=== PATIENT | female | born 1960 | race Caucasian/White ===

== ENCOUNTER 2023-10-09 12:13 | Outpatient (OUT) | payer OTHER, SELFPAY ==
--- NOTE | 2023-10-09 | XR_ITS ---
The [address] [address] Patient Name: LACY JEFFRIES MRN: [id number] date: 1960 Sex: F Assigned Patient Location: [facility] Current Patient Location: [facility] Accession/Order Number: [id number] Exam Date: 10/09/2023 12:14 Report Date: 10/09/2023 15:56 At the request of: TIARA MORGAN Procedure: XR foot RT min 3V EXAM: XR ankle RT min 3V, XR foot RT min 3V HISTORY: RIGHT ANKLE PAIN COMPARISON: There is no appropriate prior study for comparison. The alignment is anatomical. Mild degenerative changes of the first metatarsophalangeal joint are noted. 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 A small calcaneal spur is noted. There is no acute fracture or dislocation. Otherwise, the interarticular joint spaces are preserved. Mild soft tissue swelling along the medial malleolus is noted. XR/XR foot RT min 3V IMPRESSION: Degenerative changes. Electronically authenticated by: LEONIE MORAN Date: 10/09/2023 15:56
--- NOTE | 2023-10-09 | XR_ITS ---
The [address] [address] Patient Name: LACY JEFFRIES MRN: [id number] date: 1960 Sex: F Assigned Patient Location: [facility] Current Patient Location: [facility] Accession/Order Number: [id number] Exam Date: 10/09/2023 12:14 Report Date: 10/09/2023 15:56 At the request of: TIARA MORGAN Procedure: XR ankle RT min 3V EXAM: XR ankle RT min 3V, XR foot RT min 3V HISTORY: RIGHT ANKLE PAIN COMPARISON: There is no appropriate prior study for comparison. The alignment is anatomical. Mild degenerative changes of the first metatarsophalangeal joint are noted. 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 A small calcaneal spur is noted. There is no acute fracture or dislocation. Otherwise, the interarticular joint spaces are preserved. Mild soft tissue swelling along the medial malleolus is noted. XR/XR ankle RT min 3V IMPRESSION: Degenerative changes. Electronically authenticated by: LEONIE MORAN Date: 10/09/2023 15:56
== END 2023-10-09 12:14 | disposition home or self-care (01) ==
PROVIDERS: Visit Provider Physician Assistant
DX: M79.671 Pain in right foot (principal); M25.571 Pain in right ankle and joints of right foot
CPT/HCPCS: 73610; 73630

== ENCOUNTER 2023-10-15 16:23 | Outpatient (RCR) | payer OTHER, SELFPAY | END 2023-11-13 13:14 | disposition home or self-care (01) | LOC: PT 16:23 | PROVIDERS: Visit Provider Physician Assistant | DX: Q74.2 Other congenital malformations of lower limb(s), including pelvic girdle (principal) | CPT/HCPCS: 97035; 97110; 97161 ==

== ENCOUNTER 2024-01-07 11:20 | Outpatient (OUT) | payer OTHER, SELFPAY ==
--- NOTE | 2024-01-07 | XR_ITS ---
The [place] [id number] Patient Name: LACY JEFFRIES MRN: [id number] date: 1960 Sex: F Assigned Patient Location: Current Patient Location: Accession/Order Number: [id number] Exam Date: 01/07/2024 11:22 Report Date: 01/07/2024 14:13 At the request of: MANJINDER SHIELDS Procedure: XR ankle RT min 3V PROCEDURE: XR ankle RT min 3V, XR foot RT min 3V COMPARISON: 10/09/2023 HISTORY: RIGHT ANKLE PAIN FINDINGS: BONES:No acute fracture or dislocation. Mild hallux valgus. Mild to moderate degenerative change first metatarsal-phalangeal joint. Minimal enthesopathic spurring plantar calcaneus SOFT TISSUES:Negative. No visible soft tissue swelling. EFFUSION:None visible. OTHER: Negative. XR/XR ankle RT min 3V IMPRESSION: Stable degenerative changes most significant at the first metatarsal-phalangeal joint Electronically authenticated by: CHIARA LANG Date: 01/07/2024 14:13
--- NOTE | 2024-01-07 | XR_ITS ---
The [place] [id number] Patient Name: LACY JEFFRIES MRN: [id number] date: 1960 Sex: F Assigned Patient Location: Current Patient Location: Accession/Order Number: [id number] Exam Date: 01/07/2024 11:22 Report Date: 01/07/2024 14:13 At the request of: MANJINDER SHIELDS Procedure: XR foot RT min 3V PROCEDURE: XR ankle RT min 3V, XR foot RT min 3V COMPARISON: 10/09/2023 HISTORY: RIGHT ANKLE PAIN FINDINGS: BONES:No acute fracture or dislocation. Mild hallux valgus. Mild to moderate degenerative change first metatarsal-phalangeal joint. Minimal enthesopathic spurring plantar calcaneus SOFT TISSUES:Negative. No visible soft tissue swelling. EFFUSION:None visible. OTHER: Negative. XR/XR foot RT min 3V IMPRESSION: Stable degenerative changes most significant at the first metatarsal-phalangeal joint Electronically authenticated by: CHIARA LANG Date: 01/07/2024 14:13
--- OUTSIDE RECORDS SUMMARY | 2024-01-07 11:30 | XMS_ITS | CCD ---
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 Name Role Phone MD Jase Gale Primary Care Provider MD Jase Gale Attending Provider Jase Gale Attending Unavailable Jase Gale Primary Care Unavailable Jase Gale Admitting Unavailable Jase Gale Unavailable Jase Gale MD Primary Care Provider JAKY FLORES Attending Unavailable JAKY FLORES Referring Unavailable Medications Current Medications Medication Drug Class(es) Dates Sig (Normalized) Sig (Original) Calcium (2 sources) Phosphate Binder, Calcium Calcium Active Multivitamin preparation (2 sources) Multivitamin Act natanael naproxen sodium 220 mg oral tablet (2 sources) Nonsteroidal Anti-inflammatory Drug naproxen sodium (Aleve) 220 MG tablet every 12 (twelve) hours 0 Active Problems Problem Classification Problem Date Documented Da te Episodic/Chronic Disorders of lipid metabolism (2 sources) Dyslipidemia; Translations: [Hyperlipidemia, unspecified] Chronic Essential hypertension (2 sources) Hypertensive disorder; Translations: [Essential (primary) hypertension] Chronic Other connective tissue disease (1 source) Pain in right foot Episodic Other screening for suspected conditions (not mental disorders or infectious disease) (7 sources) Patient encounter status; Translations: [Encounter for screening for malignant neoplasm of colon] 08-06-2023 Episodic Unclassified (1 source) Pain in right foot; Translations: [Pain in right foot] Onset: 09-16-2023 Results Test Name Value Interpretation Reference Range Facility BI MAMMOGRAM SCREENING TOMOS YNTHESIS BILATERALon 10-01-2023 BI MAMMOGRAM SCREENING TOMOSYNTHESIS BILATERAL This is a summary report. The complete report is available in the patient's medical record. If you cannot access the medical record, please contact the sending organization for a detailed fax or copy. BI MAMMOGRAM SCREENING TOMOSYNTHESIS BILATERAL:10/27/2023 5:31 PM CLINICAL HISTORY:screening. COMPARISONS: May 16, 2015; December 24, 2017. TECHNIQUE: Routine full field 3D breast tomosynthesis was performed bilaterally. CAD analysis was performed and used in the interpretation. FINDINGS: Scattered fibroglandular densities are noted with stable asymmetry. There are no developing masses, suspicious microcalcifications , or areas of architectural distortion identified on today's examination. There is no significant change when compared to the prior examinations identified, given differences in technique and positioning. IMPRESSION: BI-RADS 1- NEGATIVE. ROUTINE FOLLOW-UP MAMMOGRAPHY IS SUGGESTED IN ONE YEAR. DENSITY: Scattered fibroglandular densities. 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 Accredited by the ACR and FDA. MAMMOGRAPHY IS VERY IMPORTANT TO YOUR HEALTH. THE [employer] GUIDELINES RECOMMEND THAT WOMEN 40 YEARS OF AGE AND OLDER SHOULD HAVE A MAMMOGRAM EVERY YEAR. A REMINDER LETTER WILL BE SENT AT THE APPROPRIATE TIME. ELECTRONICALLY SIGNED BY: Brian Delarosa DO Normal Not Available Comment on above: Order Comment: Us or spot compression prn XR foot RT min 3V*on 024 XR foot RT min 3V* [facility] Main [place] [address] [place] [address] XRay Report Signed Patient: John Shah MR#: [id number] : 1960 Acct:[id number] Age/Sex: 62 / F ADM Date: 09/16/23 Loc: [facility] Room: Type: [facility] Attending Dr: Jase Gale MD Copies to: Jase Gale MD Ordering Provider: Jase Gale MD Date of Service: 09/16/23 XR/XR foot RT min 3V*: Right foot pain ([id number]) XR/XR ankle RT min 3V*: Right foot pain RIGHT ANKLE - 3 views, right foot 3 views CLINICAL HISTORY: Pain and swelling to right ankle for one month. COMPARISON: None FINDINGS: Right ankle: Soft tissue swelling. Ankle mortise appears intact without acute bony process. Right foot: No focal soft tissue abnormality. No acute bony process. Mild degenerative changes without bony erosions. Plantar spurring. XR/XR ankle RT min 3V* IMPRESSION: MILD DEGENERATIVE CHANGES OF THE RIGHT FOOT WITHOUT ACUTE BONY PROCESS. MILD SOFT TISSUE SWELLING INVOLVING THE ANKLE WITHOUT ACUTE BONY PROCESS. Impression dictated by: Merrick Brito Jr., D.O.09/16/2023 2:14 PM Dictation Location: [place] [address] Transcribed By: [facility] 09/16/23 1414 Dictated By: Merrick Brito Jr, DO 09/16/23 1412 Signed By: 09/16/23 1414 Normal [facility] XR foot RT min 3V* [facility] [employer] Other XR foot RT min 3V* [facility] [employer] Other XR foot RT min 3V* [address] [place] [address] [employer] Other XR foot RT min 3V* [place] [address] [employer] Other XR foot RT min 3V* XRay Report [employer] Other XR foot RT min 3V* Signed [employer] Other XR foot RT min 3V* Patient: John Shah MR#: [id number] [employer] Other XR foot RT min 3V* : 1960 Acct:[id number] [employer] Other XR foot RT min 3V* Age/Sex: 62 / F ADM Date: 09/16/23 [employer] Other XR foot RT min 3V* [facility]: Type[facility] [employer] Other XR foot RT min 3V* Attending Dr: Jase Gale MD [employer] Other XR foot RT min 3V* Copies to: Jase Gale MD [employer] Other XR foot RT min 3V* Ordering Provider: Jase Gale MD [employer] Other XR foot RT min 3V* Date of Service: 09/16/23 [employer] Other XR foot RT min 3V* XR/XR foot RT min 3V*: Right foot pain [employer] Other XR foot RT min 3V* ([id number]) XR/XR ankle RT min 3V*: Right foot pain [employer] Other XR foot RT min 3V* RIGHT ANKLE - 3 views, right foot 3 views [employer] Other XR foot RT min 3V* CLINICAL HISTORY: Pain and swelling to right ankle for one month. [employer] Other XR foot RT min 3V* COMPARISON: None [employer] Other XR foot RT min 3V* FINDINGS: [employer] Other XR foot RT min 3V* Right ankle: Soft tissue swelling. Ankle mortise appears intact without acute bony process. [employer] Other XR foot RT min 3V* Right foot: No focal soft tissue abnormality. No acute bony process. Mild degenerative changes [employer] Other XR foot RT min 3V* without bony erosions. Plantar spurring. [employer] Other XR foot RT min 3V* XR/XR ankle RT min 3V* [employer] Other XR foot RT min 3V* IMPRESSION: [employer] Other XR foot RT min 3V* MILD DEGENERATIVE CHANGES OF THE RIGHT FOOT WITHOUT ACUTE BONY PROCESS. [employer] Other XR foot RT min 3V* MILD SOFT TISSUE SWELLING INVOLVING THE ANKLE WITHOUT ACUTE BONY PROCESS. [employer] Other XR foot RT min 3V* Impression dictated by: Merrick Brito Jr., D.OJason09/16/2023 2:14 PM [employer] Other XR foot RT min 3V* Dictation Location: [facility]08 [employer] Other XR foot RT min 3V* Transcribed By: PWS 09/16/23 1414 [employer] Other XR foot RT min 3V* Dictated By: Merrick Brito Jr, DO 09/16/23 1412 [place] [employer] Other XR foot RT min 3V* Signed By: [employer] Other XR foot RT min 3V* 09/16/[address] [place] [address] [employer] Other Comprehensive Metabolic Pane sal 04-22-2022 Albumin [Mass/Vol] 4.4 g/dL Normal 3.5-4.6 [facility] Comment on above: Performed By: #### C MP #### [facility] [address] [place] [address] ALP [Catalytic activity/Vol] 116 U/L Normal 40-130 [facility] Comment on above: Performed By: #### C MP #### [facility] [address] [place] [address] ALT [Catalytic activity/Vol] 21 U/L Normal 0-33 [facility] Comment on above: Performed By: #### C MP #### [facility] [address] [place] [address] Anion gap [Moles/Vol] 10 mmol/L Normal 9-15 [facility] Comment on above: Performed By: #### C MP #### [facility] [address] [place] [address] AST [Catalytic activity/Vol] 27 U/L Normal 0-35 [facility] Comment on above: Performed By: #### C MP #### [facility] [address] [place] [address] Bilirubin [Mass/Vol] mg/dL Normal 0.2-0.7 [facility] Comment on above: Performed By: #### C MP #### [facility] [address] [place] [address] Calcium [Mass/Vol] 9.9 mg/dL Normal 8.5-9.9 [facility] Comment on above: Performed By: #### C MP #### [facility] [address] [place] [address] Chloride [Moles/Vol] 104 mmol/L Normal 95-107 [facility] Comment on above: Performed By: #### C MP #### [facility] [address] [place] [address] CO2 [Moles/Vol] 26 mmol/L Normal 20-31 [facility] Comment on above: Performed By: #### C MP #### [facility] [address] [place] [address] Creatinine [Mass/Vol] 0.51 mg/dL Normal 0.50-0.90 [facility] Comment on above: Performed By: #### C MP #### [facility] [address] [place] [address] GFR >60.0 Normal >60 [facility] Comment on above: Result Comment: >60 mL/min/1.73m2 EGFR, calc. for ages 18 and older using the MDRD formula (not corrected for weight), is valid for stable renal function. Performed By: #### C MP #### [facility] [address] [place] [address] GFR/1.73 sq M.predicted among blacks MDRD (S/P/Bld) [Vol rate/Area] mL/min/{1.73_m2} Normal >60 [facility] Comment on above: Result Comment: >60 mL/min/1.73m2 EGFR, calc. for ages 18 and older using the MDRD formula (not corrected for weight), is valid for stable renal function. Performed By: #### C MP #### [facility] [address] [place] [address] Globulin (S) [Mass/Vol] 2.6 g/dL Normal 2.3-3.5 [facility] Comment on above: Performed By: #### C MP #### [facility] [address] [place] [address] Glucose [Mass/Vol] 101 mg/dL Critically high 70-99 M [facility] Comment on above: Performed By: #### C MP #### [facility] [address] [place] [address] Potassium [Moles/Vol] 4.2 mmol/L Normal 3.4-4.9 [facility] Comment on above: Performed By: #### C MP #### [facility] [address] [place] [address] Protein [Mass/Vol] 7.0 g/dL Normal 6.3-8.0 [facility] Comment on above: Performed By: #### C MP #### [facility] [address] [place] [address] Sodium [Moles/Vol] 140 mmol/L Normal 135-144 [facility] Comment on above: Performed By: #### C MP #### [facility] [address] [place] [address] Urea nitrogen [Mass/Vol] 19 mg/dL Normal 8-23 [facility] Comment on above: Performed By: #### C MP #### [facility] [address] [place] [address] Lipid Panelon 04-22-2022 Cholesterol [Mass/Vol] 162 mg/dL Normal 0-199 [facility] Comment on above: Result Comment: ATP III Cholesterol classification is Desirable. Performed By: #### L IPID #### [facility] [address] [place] [address] Cholesterol in HDL [Mass/Vol] 85 mg/dL Critically high 40-59 [facility] Comment on above: Result Comment: ATP III HDL Cholesterol Classification is high. Expected Values: Males: >55 = No Risk 35-55 = Moderate Risk <35 = High Risk Females: >65 = No Risk 45-65 = Moderate Risk <45 = High Risk NCEP Guidelines: Third Report December 2000 >59 = negative risk factor for CHD <40 = major risk factor for CHD Performed By: #### L IPID #### [facility] [address] [place] [address] Cholesterol in LDL [Mass/Vol] 64 mg/dL Normal 0-129 [facility] Comment on above: Result Comment: ATP III LDL Classification is Optimal. Performed By: #### L IPID #### [facility] [address] [place] [address] Triglyceride [Mass/Vol] 66 mg/dL Normal 0-150 [facility] Comment on above: Result Comment: ATP III Triglycerides Classification is Normal. Performed By: #### L IPID #### [facility] [address] [place] [address] Vital Signs Date Time Vital Sign Value Performing Clinician Grace michael 10-01-2023 13:44-0500 Body mass index (BMI) [Ratio] 27.29 kg/m2 Jaky Nataprawira DO Work Phone: [facility] 10-01-2023 13:44-0500 Body weight 72.12 kg Jaky Nataprawira DO Work Phone: [facility] 10-01-2023 13:44-0500 Diastolic blood pressure 78 mm[Hg] Jaky Nataprawira DO Work Phone: [facility] 10-01-2023 13:44-0500 Systolic blood pressure 126 mm[Hg] Jaky Nataprawira DO Work Phone: [facility] 09-16-2023 11:15-0500 Body height 162.56 cm Jase Gale Other [employer] Other 09-16-2023 11:15-0500 Body mass index (BMI) [Ratio] 27.12 kg/m2 Jase Gale Other [employer] Other 09-16-2023 11:15-0500 Body weight 71.67 kg Jase Gale Other [employer] Other 09-16-2023 11:15-0500 Diastolic blood pressure 70 mm[Hg] Jase Gale Other [employer] Other 09-16-2023 11:15-0500 Systolic blood pressure 134 mm[Hg] Jase Gale Other [employer] Other Encounters Encounter Date Encounter Type Care Provider Facility Start: 10-27-2023 End: 10-28-2023 ambulatory JAKY FLORES Not Available Start: 10-01-2023 End: 10-01-2023 ambulatory JAKY FLORES Not Available Start: 10-01-2023 End: 10-01-2023 Initial preventive medicine new patient 40-64yrs Jaky Flores DO Work Phone: [facility] Comment on above: Encounter for gyneco logical examination without abnormal finding; Screening for malignant neoplasm of cervix; Encounter for screening for human papillomavirus (HPV); Encounter for screening mammogram for malignant neoplasm of breast Start: 10-01-2023 End: 10-01-2023 Patient encounter status Jaky Flores DO Work Phone: [facility] Start: 09-22-2023 End: 09-22-2023 ambulatory Jase Gale Other [employer] Other Start: 09-22-2023 Telephone encounter [facility] Start: 09-16-2023 End: 09-16-2023 ambulatory Jase Gale Facility:[facility] Start: 09-16-2023 Office outpatient vi sit 15 minutes [facility] Start: 09-16-2023 End: 09-16-2023 ambulatory MD Jase Gale Work Phone: [facility] Work Phone: Start: 09-16-2023 End: 09-16-2023 Patient encounter procedure MD Jase Gale Work Phone: [facility] Procedures Date Procedure Procedure Detail Performing Clinician Start: 09-16-2023 X-ray of right ankle MD Jase Gale Work Phone: Start: 09-16-2023 X-ray of right foot MD Jase Gale Work Phone: Start: 12-24-2017 Mammography Jaky leonard DO Work Phone: Plan of Treatment Date Care Activity Detail Author Start: 04-25-2023 Influenza vaccination Influenza Vacc ine (#1) [facility] Start: 12-24-2018 Screening for malignant neoplasm of breast Mammogram [facility] Start: 11-10-1989 Screening for malignant neoplasm of cervix [facility] Start: 11-10-1980 Screening for malignant neoplasm of cervix Pap Smear [facility] Start: 1960 Screening for malignant neoplasm of colon [facility] DBT Breast - bilater al screening Bilateral screening mammogram with tomosynthesis Imaging Routine Encounter for screening mammogram for malignant neoplasm of breast Ordered: 10/01/2023 [facility] Comment on above: Ordered: 10/01/2023 THINPREP TIS PAP AND HPV MRNA E6/E7 WITH REFLEX TO HPV 16,18/45 THINPREP TIS PAP AND HPV MRNA E6/E7 WITH REFLEX TO HPV 16,18/45 Pathology and Cytology Routine Screening for malignant neoplasm of cervix Encounter for screening for human papillomavirus (HPV) Ordered: 10/01/2023 [facility] Work Phone: Comment on above: Ordered: 10/01/2023 Immunizations Immunization Date Immunization Notes Care Provider Griffin escamilla 10-20-2020 COVID-19 Vaccine Moderna - Documentation Purposes Only Jase Gale Other [employer] Other 09-22-2020 COVID-19 Vaccine Moderna - Documentation Purposes Only Jase Gale Other [employer] Other Payers Date Payer Category Payer Self-pay [id number] 2023 Unknown [employer] [id number] 2023-Present [address] [place] [address] [id number] 2015 Unknown [id number] 1960 Unknown [id number] 1960 Unknown [id number] Unknown [id number] Social History Date Type Detail Facility Start: 07-16-2019 End: 10-01-2023 Tobacco smoking status NHIS Never smoked tobacco (finding) [facility] Start: 1960 Sex Assigned At Female F [facility] Start: 10-01-2023 Sex Assigned At N [facility] [employer] Other Start: 10-01-2023 Tobacco use and exposure Smokeless tobacco non-user [facility] Start: 10-01-2023 Alcohol intake Ex-drinker (finding) [facility] Start: 10-01-2023 History of Social function [facility] Start: 10-01-2023 Gender identity Identifies as female gender (finding) [facility] History of Present illness Narrative 10-01-2023 Jaky Flores DO - 10/01/2023 1:30 PM EST Note Date & Type Note Facility 10-01-2023 History of Presen t illness Narrative Images from the original note were not included. Jaky Flores DO Obstetrics and Gynecology Name: John Shah Date/Time of Service:10/01/2023 2:09 PM :1960 Age: 62 y.o. Subjective John Shah is a 62 y.o. female who is here for a routine exam. Gynecologic Exam (New patient here for a yearly-previous JFL. Denies any problems at this time. Mammogram order sent to [facility]. Last pap 2018-NILM colonoscopy was within the last ten years. ) Control Contraception: post menopausal status. LMP: No LMP recorded. Patient is postmenopausal. Last Mammogram Results for orders placed in visit on 11/19/17 Bilateral screening mammogram Narrative PERFORMED AT [facility] LOCATION:[id number] negative Current Outpatient Medications on File Prior to Visit Medication Sig Dispense Refill naproxen sodium (Aleve) 220 MG tablet every 12 (twelve) hours No current facility-administered medications on file prior to visit. Past Medical History: Diagnosis Date Hx of abnormal cervical Pap smear Kidney stones Migraine (CMS/HCC) Stress fracture 2011 left tib/fib Past Surgical History: Procedure Laterality Date CRYOTHERAPY abnormal pap ROTATOR CUFF REPAIR Left 2014 VAGINAL DELIVERY x2 Family History Problem Relation Name Age of Onset Lymphoma Father Social History Tobacco Use Smoking status: Never Smokeless tobacco: Never Substance Use Topics Alcohol use: Not Currently Drug use: Never OB History Para Term AB Living 2 2 SAB IAB Ectopic Multiple Live Births # Outcome Date GA Lbr Esequiel/2nd Weight Sex Delivery Anes PTL Lv 2 Para 1 Para No Known Allergies Review of Systems Constitutional: Negative. Respiratory: Negative. Cardiovascular: Negative. Gastrointestinal: Negative. Musculoskeletal: Negative. Skin: Negative. Neurological: Negative. Endocrine: Negative. Objective BP 126/78 Wt 159 lb BMI 27.29 kg/m Body mass index is 27.29 kg/m . Physical Exam Genitourinary: Urethral meatus normal. No lesions in the vagina. Genitourinary Comments: SST negative Right Labia: No lesions. Left Labia: No lesions. No vaginal discharge. Moderate vaginal atrophy present. Right Adnexa: not tender and no mass present. Left Adnexa: not tender and no mass present. No cervical lesion. Cervical exam comments: Stenotic os. Uterus is not tender. Uterus is anteverted. Bladder is not tender. Rectum: No rectovaginal septum nodularity. Breasts: Right: No mass, nipple discharge, skin change or tenderness. Left: No mass, nipple discharge, skin change or tenderness. HENT: Head: Normocephalic and atraumatic. Mouth/Throat: Mouth: Mucous membranes are moist. Cardiovascular: Rate and Rhythm: Normal rate and regular rhythm. Pulmonary: Effort: Pulmonary effort is normal. Breath sounds: Normal breath sounds. Abdominal: General: Bowel sounds are normal. Palpations: Abdomen is soft. Musculoskeletal: General: No tenderness. Cervical back: Neck supple. Neurological: Mental Status: She is alert and oriented to person, place, and time. Skin: General: Skin is warm and dry. Psychiatric: Mood and Affect: Mood normal. Vitals and nursing note reviewed. Assessment/Plan 1. Encounter for gynecological examination without abnormal finding Breast and pelvic exam performed. Discussed findings. Patient to contact the office with any changes to her gynecological condition. 2. Screening for malignant neoplasm of cervix Cervical cytology and co-testing performed. Patient to contact the office for results - THINPREP TIS PAP AND HPV MRNA E6/E7 WITH REFLEX TO HPV 16,18/45 3. Encounter for screening for human papillomavirus (HPV) - THINPREP TIS PAP AND HPV MRNA E6/E7 WITH REFLEX TO HPV 16,18/45 4. Encounter for screening mammogram for malignant neoplasm of breast Mammogram order sent. Patient to schedule appointment - Bilateral screening mammogram with tomosynthesis ICD-10-CM 1. Encounter for gynecological examination without abnormal finding Z01.419 2. Screening for malignant neoplasm of cervix Z12.4 THINPREP TIS PAP AND HPV MRNA E6/E7 WITH REFLEX TO HPV 16,18/45 3. Encounter for screening for human papillomavirus (HPV) Z11.51 THINPREP TIS PAP AND HPV MRNA E6/E7 WITH REFLEX TO HPV 16,18/45 4. Encounter for screening mammogram for malignant neoplasm of breast Z12.31 Bilateral screening mammogram with tomosynthesis Follow up in about 1 year (around 10/01/2024) for Yearly. Jaky Flores DO 10/01/2023 2:09 PM documented in this encounter [facility] Evaluation note 09-16-2023 Note Date & Type Note Facility 09-16-2023 Evaluation note Encounter Date Diagnosis Assessment Notes Aug, Right foot pain (ICD-10 - M79.671) Presents with a 1 month history of swelling of the right ankle following miss stepping. She did not fall with this injury. She did not develop any bruising. Remains somewhat tender due to the swelling. Somewhat difficult to wear a tighter fitting shoe. Exam today was fairly nonspecific, pressure with swelling only. No indication of any point tenderness or joint instability. Appropriate x-rays will be ordered. Treat symptomatically . [employer] Other Evaluation note Note Date & Type Note Facility Evaluation note No assessment information availa ble [facility] Work Phone: Evaluation note Note Date & Type Note Facility Evaluation note No Information [facility] [employer] Other Evaluation note Note Date & Type Note Facility Evaluation note Diagnosis Encounter for gynecological examination without abnormal finding Screening for malignant neoplasm of cervix Screening for malignant neoplasm of the cervix Encounter for screening for human papillomavirus (HPV) Encounter for screening mammogram for malignant neoplasm of breast documented in this encounter [facility] History general Narrative - Reported Note Date & Type Note Facility History general Narrative - Reported Type Surgical History kidney stones 1978 Surgical History should surgery left rotator [employer] [facility] [employer] Other Summary Purpose Family History No Family History Records Found Relationship Condition Age at Onset Recorded Date/T jaqueline father Lymphoma Unknown grandparent Malignant neoplasm of breast Unknown Advance Directives No Advanced Directives Records Found Advance Directive Response Recorded Date/ Time Advance Directives No December 15, 3:25pm Additional Source Comments INFORMATION SOURCE (unrecogn ized section and content) DATE CREATED AUTHOR 04/22/2022 [facility] DATE CREATED AUTHOR AUTHOR'S ORGANIZ ATION 09/24/2023 [facility] DATE CREATED AUTHOR AUTHOR'S ORGANIZ ATION 11/01/2023 [facility] EPIC Care Teams (unrecognized sec tion and content) Team Status: Active Member Role Status Dates Jase Gale MD Primary Care Provider Active Team Status: Inactive Member Role Status Dates Jase Gale MD Primary Care Prov ider, Attending Provider Active Start: September 16, 2023 End: September 16, 2023 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 Denies any problems at this time. Mammogram order sent to [facility]. Last pap 2018-[facility] colonoscopy was within the last ten years. FOR RECORDS PERTAINING TO PATIENTS WHO ARE OR HAVE BEEN ENROLLED IN A CHEMICAL DEPENDENCY/SUBSTANCEABUSE PROGRAM, SOME INFORMATION MAY BE OMITTED. This clinical summary was aggregated from multiple sources. Caution should be exercised in using it in the provision of clinical care. This summary normalizes information from multiple sources, and as a consequence, information in this document may materially change the coding, format and clinical context of patient data. In addition, data may be omitted in some cases. CLINICAL DECISIONS SHOULD BE BASED ON THE PRIMARY CLINICAL RECORDS. [employer] provides no warranty or guarantee of the accuracy or completeness of information in this document.
== END 2024-01-07 11:21 | disposition home or self-care (01) ==
LOC: EC 11:21
PROVIDERS: Visit Provider Podiatrist Foot & Ankle Surgery
DX: M25.571 Pain in right ankle and joints of right foot (principal); M79.671 Pain in right foot
CPT/HCPCS: 73610; 73630

== ENCOUNTER 2024-01-28 14:07 | Outpatient (OUT) | payer OTHER, SELFPAY ==
--- NOTE | 2024-01-28 | XR_ITS ---
The [address] [address] Patient Name: LACY JEFFRIES MRN: [id number] date: 1960 Sex: F Assigned Patient Location: Current Patient Location: Accession/Order Number: [id number] Exam Date: 01/28/2024 14:10 Report Date: 01/30/2024 07:48 At the request of: MANJINDER SHIELDS Procedure: XR foot RT min 3V PROCEDURE: XR foot RT min 3V HISTORY: RIGHT FOOT PAIN ; pain to first metatarsophalangeal joint; pain involving distal third through 5th metatarsal regions COMPARISON: XR foot right 01/07/2024 FINDINGS: BONES:Mild degenerative changes the first metatarsophalangeal joint and small dorsal projecting degenerative osteophytes. Thin band of sclerosis across the head of fourth metatarsal. Lucency involving medial margin of the 5th metatarsal head and base of 5th proximal phalanx. SOFT TISSUES:No visible soft tissue swelling. EFFUSION:None visible. OTHER: Negative. XR/XR foot RT min 3V IMPRESSION: 1. Lucencies/cortical destruction involving medial margin of 5th metatarsal head and adjacent 5th proximal phalanx concerning for osteomyelitis. 2. New thin band of sclerosis across fourth metatarsal head possibly representing changes of bone healing from occult fracture. 3. Mild/moderate degenerative changes the first metatarsophalangeal joint. Electronically authenticated by: ABBIE CASTELLANO Date: 01/30/2024 07:48
== END 2024-01-28 14:08 | disposition home or self-care (01) ==
LOC: EC 14:08
PROVIDERS: Visit Provider Podiatrist Foot & Ankle Surgery
DX: M79.671 Pain in right foot (principal); M19.071 Primary osteoarthritis, right ankle and foot
CPT/HCPCS: 73630